=== PATIENT | female | born 1985 | race Two or more races ===

== ENCOUNTER 2016-11-24 07:57 | Emergency (ER) | payer OTHER ==
[2016-11-24 08:05] VITALS: TEMP 98.7; BMI 39.8
--- NOTE | 2016-11-24 08:42 | PDOC ---
History of Present Illness - General History Source: Patient Exam Limitations: No Limitations - History of Present Illness Initial Comments: CHIEF COMPLAINT: 31 y/o afebrile female with PMH PCOS c/o pelvic pain since yesterday. HISTORY OF PRESENT ILLNESS: The patient states her menstrual cycle started yesterday. She has normal period cramping but is also having sharp pelvic pains as well as the cramping that is unusual for her. She states it feels like pain she used to get with her PCOS but she hasn't had this type of pain in many years. She states she was taking Advil all day yesterday with no relief. She denies f/c, n/v/d, CP, SOB, back pain, hematuria, dysuria. Vital signs on arrival are within normal limits. REVIEW OF SYSTEMS: GENERAL/CONSTITUTIONAL: No fever/chills. No weakness. No weight change. HEAD, EYES, EARS, NOSE AND THROAT: No change in vision. No ear pain or discharge. No sore throat. CARDIOVASCULAR: No chest pain or shortness of breath. RESPIRATORY: No cough, wheezing, or hemoptysis. GASTROINTESTINAL: +pelvic pain and vaginal bleeding. No nausea, vomiting, diarrhea. GENITOURINARY: No dysuria, frequency, or change in urination. MUSCULOSKELETAL: No joint or muscle swelling or pain. No neck or back pain. SKIN: No rash or easy bruising. NEUROLOGIC: No headache, vertigo, loss of consciousness, or loss of sensation. PHYSICAL EXAM: GENERAL: The patient is awake, alert, and fully oriented, in no acute distress. She is morbidly obese and crying in the ER. HEAD: Normal with no signs of trauma. ENT: Pupils equal, round and reactive to light, extraocular movements intact, sclera anicteric, conjunctiva clear. Neck supple. LUNGS: Clear to auscultation bilaterally. Normal excursion. No respiratory distress or use of accessory muscles. CV: RRR, S1/S2, no MRG. Cap refill < 2 sec. ABDOMEN: Soft, non-distended, no hepatomegaly or splenomegaly, no masses. No rebound, guarding or rigidity. Pain elicited with palpation of pelvis and suprapubic region. VAGINAL: Moderate blood in vaginal vault and seen coming from the os. No lesions or lacerations noted. Manual exam reveals CMT and b/l adnexal tenderness. EXTREMITIES: Normal range of motion, no edema. NEUROLOGICAL: Normal speech, normal gait. CN II-XII grossly intact. PSYCH: Normal mood, normal affect. SKIN: Warm, dry, normal turgor, no rashes or lesions noted. <Mary Carmen Gunn - Last Filed: 11/24/16 11:16> <Beverley Garrett - Last Filed: 11/26/16 14:15> - General Chief Complaint: Pain Stated Complaint: PELVIC PAIN Time Seen by Provider: 11/24/16 08:24 Past History - Past Medical History Disorders: Yes (UTI) - Immunization History Immunization Up to Date: No - Psycho/Social/Smoking Cessation Hx Anxiety: No Suicidal Ideation: No Smoking History: Never smoked Have you smoked in the past 12 months: No Information on smoking cessation initiated: No Hx Alcohol Use: No Drug/Substance Use Hx: No Substance Use Type: Alcohol <Mary Carmen Gunn - Last Filed: 11/24/16 11:16> <Beverley Garrett - Last Filed: 11/26/16 14:15> - Past Medical History Allergies/Adverse Reactions: Allergies Allergy/AdvReac Type Severity Reaction Status Date / Time clindamycin Allergy Verified 11/24/16 08:03 Home Medications: Ambulatory Orders NK [No Known Home Medication] 11/24/16 *Physical Exam - Vital Signs Last Vital Signs Temp Pulse Resp BP Pulse Ox 98.7 F 65 18 131/94 100 11/24/16 07:59 11/24/16 07:59 11/24/16 07:59 11/24/16 07:59 11/24/16 07:59 <Mary Carmen Gunn - Last Filed: 11/24/16 11:16> - Vital Signs Last Vital Signs Temp Pulse Resp BP Pulse Ox 98.7 F 61 18 119/73 100 11/24/16 07:59 11/24/16 11:44 11/24/16 11:44 11/24/16 11:44 11/24/16 11:44 <Beverley Garrett - Last Filed: 11/26/16 14:15> ED Treatment Course - ADDITIONAL ORDERS Additional order review: 11/24/16 08:45 Urine Culture - Final Urine - Urine Clean Catch NO GROWTH OBTAINED - RADIOLOGY Radiology Studies Ordered: Category Date Time Status PELVIC / BLADDER US [US] Routine Ultrasound 11/24/16 Completed - Medications Given in the ED: ED Medications Discontinued Medications Generic Name Dose Route Start Last Admin Trade Name Kalmesh PRN Reason Stop Dose Admin Ketorolac Tromethamine 60 mg 11/24/16 10:40 11/24/16 10:50 Toradol Injection - IM 11/24/16 10:41 60 mg ONCE ONE Administration <Beverley Garrett - Last Filed: 11/26/16 14:15> Medical Decision Making - Medical Decision Making A/P: 31 y/o female with pelvic pain and cramping. She states it feels like PCOS pain but she hasn't had this type of pain in many years. Plan is as follows: 1. UA/culture/hcg 2. Transvaginal ultrasound Transvaginal Ultrasound IMPRESSION: Normal pelvic sonogram with no evidence of torsion or acute pathology. Will order IM Toradol. The patient states she feels better after IV Toradol and her pain is much more manageable. Gave her all of the results. I suspect this may be a flare of her PCOS and strongly encouraged the patient to f/u with her PRECISION LENS CENTERER AND EDGER as soon as possible. Suggested she take 800mg of Ibuprofen three times per day with food over the next few days and drink plenty of fluids. Instructed her to return to the ER immediately with any worsening or concerning symptoms. The patient verbalizes understanding of all instructions, has no further questions and is awaiting discharge. <Mary Carmen Gunn - Last Filed: 11/24/16 11:16> - Medical Decision Making 11/26/16 14:14 Pt seen and examined. Agree with above history and physical, assesment and plan. <Beverley Garrett - Last Filed: 11/26/16 14:15> *DC/Admit/Observation/Transfer <Mary Carmen Gunn - Last Filed: 11/24/16 11:16> <Beverley Garrett - Last Filed: 11/26/16 14:15> Diagnosis at time of Disposition: Pelvic pain, Dysmenorrhea - Discharge Dispostion Disposition: HOME Condition at time of disposition: Improved - Referrals Referrals: Natalie Schmitt MD [Primary Care Provider] - Tip Holguin MD [Staff Physician] - - Patient Instructions Printed Discharge Instructions: DI for Dysmenorrhea, DI for Pelvic Pain Additional Instructions: Discharge Instructions: -The ultrasound of your uterus and ovaries was normal. -Please take 800mg of Ibuprofen every 8 hours with food for pain -Drink at least 64oz of water daily -Follow up at [id number] or with Dr. Holguin as soon as possible -Return to the ER with any worsening or concerning symptoms.
[2016-11-24 08:57] LABS: URINE APPEARANCE CLEAR; URINE BILIRUBIN NEGATIVE (NEGATIVE); URINE COLOR STRAW; URINE GLUCOSE (UA) NEGATIVE (NEGATIVE); URINE KETONE NEGATIVE (NEGATIVE); URINE LEUK ESTERASE NEGATIVE (NEGATIVE); URINE NITRITE NEGATIVE (NEGATIVE); URINE PROTEIN NEGATIVE (NEGATIVE); URINE UROBILINOGEN NEGATIVE E.U./dl (0.2-1.0)
[2016-11-24 08:58] LABS: URINE BLOOD 2+ (NEGATIVE)
[2016-11-24 09:00] LABS: URINE RBC 2 /hpf (0-3); URINE WBC <1 /hpf (3-5)
[2016-11-24] MEDS ORDERED: KETOROLAC TROMETHAMINE 60 MG/2 ML VIAL IM ONE (10:40)
[2016-11-24] MEDS ORDERED: KETOROLAC TROMETHAMINE 60 MG/2 ML VIAL ONE (10:47)
[2016-11-24 11:46] VITALS: BP 119/73; PULSE 61
== END 2016-11-24 11:46 | disposition home or self-care (01) ==
LOC: JER 07:57
PROC: 3E0233Z Introduction of Anti-inflammatory into Muscle, Percutaneous Approach (ICD-10-PCS; principal; 2016-11-24)
DX: N94.6 Dysmenorrhea, unspecified (principal)
CPT/HCPCS: 76830-TC; 76856-TC; 81003; 81015; 84703; 87086; 99283-25

== ENCOUNTER 2018-11-27 07:33 | Emergency (ER) | payer OTHER ==
[2018-11-27 07:42] VITALS: TEMP 98.5; BMI 45.4
--- NOTE | 2018-11-27 08:05 | PDOC ---
History of Present Illness - General Chief Complaint: Vaginal Bleeding Stated Complaint: 7 WEEKS PREG AND SPOTTING - History of Present Illness Initial Comments: The pt is a 33F at 7wks w/ a history of PCOS who presents for evaluation of vaginal spotting this morning. She reports pelvic cramping throughout the which has not changed. She denies clots or previous spotting during her . She denies dysuria, hematuria, diarrhea, blood in her stool, N/V , lightheadedness, history of easy bleeding/bruising. She was seen by her OBGYN 5 days ago, was told her beta may not be rising appropriately and was told to present if there was any spotting. Endorses taking pre- vitamins. Her cramping pains are intermittent, suprapubic, non-radiating, not aggravated/ alleviated by anything she can identify 11/27/18 08:04 Past History - Past Medical History Allergies/Adverse Reactions: Allergies Allergy/AdvReac Type Severity Reaction Status Date / Time clindamycin Allergy Verified 11/27/18 07:42 Home Medications: Ambulatory Orders NK [No Known Home Medication] 11/24/16 COPD: No Disorders: Yes (UTI) - Immunization History Immunization Up to Date: No - Suicide/Smoking/Psychosocial Hx Smoking History: Never smoked Have you smoked in the past 12 months: No Hx Alcohol Use: No Drug/Substance Use Hx: No Substance Use Type: Alcohol Review of Systems - Review of Systems Able to Perform ROS?: Yes Comments:: GENERAL/CONSTITUTIONAL: No fever or chills. No weakness HEAD, EYES, EARS, NOSE AND THROAT: No change in vision. No ear pain or discharge. No sore throat CARDIOVASCULAR: No chest pain or shortness of breath RESPIRATORY: Denies cough, hemoptysis GASTROINTESTINAL: No nausea, vomiting, diarrhea or constipation GENITOURINARY: No dysuria, frequency, or change in urination MUSCULOSKELETAL: No joint or muscle swelling or pain. No neck or back pain SKIN: No rash NEUROLOGIC: No headache, vertigo, loss of consciousness, or change in strength/ sensation ENDOCRINE: No increased thirst. No abnormal weight change HEMATOLOGIC/LYMPHATIC: No anemia, easy bleeding, or history of blood clots ALLERGIC/IMMUNOLOGIC: No hives or skin allergy 11/27/18 08:04 Is the patient limited Greek proficient: No *Physical Exam - Vital Signs Last Vital Signs Temp Pulse Resp BP Pulse Ox 98.5 F 78 18 129/78 98 11/27/18 07:39 11/27/18 07:39 11/27/18 07:39 11/27/18 07:39 11/27/18 07:39 - Physical Exam Comments: GENERAL: Awake, alert, and oriented to person/place/time, in no acute distress HEAD: No signs of trauma, normocephalic, atraumatic EYES: PERRLA, EOMI, sclera anicteric, conjunctiva clear ENT: Hearing grossly normal, nares patent, oropharynx clear without exudates. Moist mucosa LUNGS: No distress, speaks in full sentences, clear to auscultation bilaterally HEART: Regular rate and rhythm, normal S1 and S2, no murmurs appreciated, peripheral pulses normal and equal bilaterally ABDOMEN: Soft, protuberant, nontender, normoactive bowel sounds. No guarding, no rebound EXTREMITIES: Normal inspection, Normal range of motion, no edema. No clubbing or cyanosis NEUROLOGICAL: Cranial nerves II through XII grossly intact. Normal speech, normal gait, no focal sensorimotor deficits SKIN: Warm, Dry External genitalia unremarkable Speculum exam with normal appearing whitish vaginal discharge Vaginal wall mucosa is unremarkable. Cervix visualized and is closed w/o any protruding material Bimanual exam without cervical motion tenderness, adnexal tenderness or any masses appreciated 11/27/18 08:04 ED Treatment Course - LABORATORY CBC & Chemistry Diagram: 11/27/18 09:40 11/27/18 09:40 Medical Decision Making - Medical Decision Making The pt is a 33F at 7 weeks who presents for evaluation of vaginal spotting this morning. TVUS to evaluate for FHT, or evidence of bleed/free fluid, or cyst Labs sent US w/o free fluid, notable for ovarian cyst, FHT wnl Lytes wnl No anemia No leukocytosis Rh + UA w/o evidence of UTI Beta 19731 (data provided to pt and increased from 8000s this past Thursday) Plan for D/C w/ OBGYN f/u Discharge instructions and return precautions given Pt in agreement and verbalized understanding Dispo: home 11/27/18 14:38 *DC/Admit/Observation/Transfer Diagnosis at time of Disposition: Bleeding in early , Threatened - Discharge Dispostion Disposition: HOME Condition at time of disposition: Stable Decision to Admit order: No - Referrals Referrals: Kayli Spear MD [Primary Care Provider] - - Patient Instructions Printed Discharge Instructions: DI for Threatened Additional Instructions: Please continue to take vitamins. Please drink plenty of fluids. Your beta hcg today was >10,000. Your blood type was O+. Please make a follow up appointment with your SHELL FISHERMAN for this week. Please return to the ED if you are bleeding more than 2 pads an hour for more than 2 hours, feeling lightheaded or any further concerns. - Post Discharge Activity
--- NOTE | 2018-11-27 08:41 | PDOC ---
Attending Attestation - Resident Resident Name: Herber Dennis - ED Attending Attestation I have performed the following: I have examined & evaluated the patient, The case was reviewed & discussed with the resident, I agree w/resident's findings & plan, Exceptions are as noted - Medical Decision Making 11/27/18 08:41 I, Dr. Jeane Dewey, DO, attest that this document has been prepared under my direction and personally reviewed by me in its entirety. I further attest, that it accurately reflects all work, treatment, procedures and medical decision -making performed by me.
[2018-11-27 09:47] LABS: BASO % 0.8 % (0-2.0); EOS % 1.1 % (0-4.5); HEMATOCRIT 38.7 % (32.4-45.2); LYMPH % 20.2 % (8-40); MCH 28.7 pg (25.7-33.7); MCHC 33.6 g/dl (32.0-36.0); MEAN CELL VOLUME 85.5 fl (80-96); MEAN PLT VOLUME 7.6 fl (7.5-11.1); MONO % 8.8 % (3.8-10.2); NEUT % 69.1 % (42.8-82.8); RBC 4.53 M/mm3 (3.60-5.2); RDW 13.3 % (11.6-15.6); WHITE BLOOD COUNT 7.9 K/mm3 (4.0-10.0)
--- NOTE | 2018-11-27 09:47 | PDOC ---
Documentation entered by Salvatore Wallis SCRIBE, acting as scribe for Jeane Dewey DO. Jeane Dewey DO: This documentation has been prepared by the Bimal sultana Elijah, SCRIBE, under my direction and personally reviewed by me in its entirety. I confirm that the documentation accurately reflects all work, treatment, procedures, and medical decision making performed by me. Attending Attestation - Resident Resident Name: SonnyJonHerber - ED Attending Attestation I have performed the following: I have examined & evaluated the patient, The case was reviewed & discussed with the resident, I agree w/resident's findings & plan - HPI HPI: 11/27/18 09:48 The patient is a at 7wks with a significant past medical history of PCOS who presents to the ED with evaluation for vaginal spotting that began this morning. Patient reports pelvic cramping throughout her . Denies discharge and diarrhea Allergies: Clindamycin PCP: Dr. Spear - Physicial Exam PE: 11/27/18 09:48 GENERAL: +Obese. Awake, alert, and fully oriented, in no acute distress HEAD: No signs of trauma EYES: PERRLA, EOMI, sclera anicteric, conjunctiva clear ENT: Auricles normal inspection, hearing grossly normal, nares patent, oropharynx clear without exudates. Moist mucosa NECK: Normal ROM, supple, no lymphadenopathy, JVD, or masses LUNGS: Breath sounds equal, clear to auscultation bilaterally. No wheezes, and no crackles HEART: Regular rate and rhythm, normal S1 and S2, no murmurs, rubs or gallops ABDOMEN: Soft, nontender, normoactive bowel sounds. No guarding, no rebound. No masses EXTREMITIES: Normal range of motion, no edema. No clubbing or cyanosis. No cords, erythema, or tenderness VAGINAL: No vaginal bleeding during exam. NEUROLOGICAL: Cranial nerves II through XII grossly intact. Normal speech, normal gait SKIN: Warm, Dry, normal turgor, no rashes or lesions noted. - Medical Decision Making 11/27/18 09:46 I, Dr. Jeane Dewey DO, attest that this document has been prepared under my direction and personally reviewed by me in its entirety. I further attest, that it accurately reflects all work, treatment, procedures and medical decision -making performed by me. 11/27/18 09:46 a/p: 33yo female with pcos at about 7 weeks gestation -pt with cramping since the start of her preg -pt with spotting today, no clots -pt denies v/d/discharge -no dysuria -will send labs, beta earlier this week was 8560. will repeat -will send for tvus -pt is nontoxic in appearance -will send type and screen 11/27/18 09:47 tvus: iup at 6 weeks with fhr 133 L ovarian cyst 11/27/18 10:45 beta 10,000 type and screen pending need ua 11/27/18 10:57 ua neg pending type and screen 11/27/18 11:31 o+ stable for dc to home *DC/Admit/Observation/Transfer Diagnosis at time of Disposition: Bleeding in early , Threatened - Discharge Dispostion Disposition: HOME Condition at time of disposition: Stable Decision to Admit order: No - Referrals Referrals: Kayli Spear MD [Primary Care Provider] - - Patient Instructions Printed Discharge Instructions: DI for Threatened Additional Instructions: Please continue to take vitamins. Please drink plenty of fluids. Your beta hcg today was >10,000. Your blood type was O+. Please make a follow up appointment with your MEDICAL RECORDS SUPERVISOR for this week. Please return to the ED if you are bleeding more than 2 pads an hour for more than 2 hours, feeling lightheaded or any further concerns. - Post Discharge Activity
[2018-11-27 10:01] LABS: PLATELET COUNT 367 K/MM3 (134-434)
[2018-11-27 10:25] LABS: ALBUMIN 3.9 g/dl (3.4-5.0); BILIRUBIN,TOTAL 0.6 mg/dL (0.2-1); BLOOD UREA NITROGEN 9.6 mg/dL (7-18); CALCIUM 8.8 mg/dL (8.5-10.1); CREATININE 0.7 mg/dL (0.55-1.3); POTASSIUM 4.3 mmol/L (3.5-5.1); TOT PROT 7.3 g/dl (6.4-8.2)
[2018-11-27 10:55] LABS: PH,URINE 7.5 (5.0-8.0); URINE APPEARANCE CLEAR; URINE BILIRUBIN NEGATIVE (NEGATIVE); URINE COLOR YELLOW; URINE GLUCOSE (UA) NEGATIVE (NEGATIVE); URINE KETONE NEGATIVE (NEGATIVE); URINE LEUK ESTERASE NEGATIVE (NEGATIVE); URINE NITRITE NEGATIVE (NEGATIVE); URINE PROTEIN NEGATIVE (NEGATIVE); URINE UROBILINOGEN 0.2 mg/dL (0.2-1.0)
[2018-11-27 11:46] VITALS: BP 126/72; PULSE 76
== END 2018-11-27 11:46 | disposition home or self-care (01) ==
LOC: JER 07:33
DX: O26.891 Other specified pregnancy related conditions, first trimester (principal); O20.0 Threatened abortion; O20.8 Other hemorrhage in early pregnancy; Z3A.01 Less than 8 weeks gestation of pregnancy
CPT/HCPCS: 36415; 76817-TC; 80053; 81003; 84702; 85025; 86850; 86900; 86901; 87086; 99282-25

== ENCOUNTER 2019-08-02 09:48 | Emergency (ER) | payer OTHER ==
[2019-08-02 09:54] VITALS: BP 152/98; PULSE 81; TEMP 98.2; BMI 46.3
--- NOTE | 2019-08-02 10:04 | PDOC ---
History of Present Illness - General Chief Complaint: Respiratory Stated Complaint: COUGHING/HEADACHE Time Seen by Provider: 08/02/19 10:04 History Source: Patient Exam Limitations: No Limitations Past History - Travel Traveled outside of the country in the last 30 days: No Close contact w/someone who was outside of country & ill: No - Past Medical History Allergies/Adverse Reactions: Allergies Allergy/AdvReac Type Severity Reaction Status Date / Time clindamycin Allergy Verified 08/02/19 09:54 Home Medications: Ambulatory Orders Albuterol Sulfate Inhaler - [Ventolin HFA Inhaler -] 1 - 2 inh PO Q4H #1 inhaler 08/02/19 Azithromycin [Zithromax 250mg Tablets -] 250 mg PO UTDICT #6 tab 08/02/19 Guaifenesin Dm [Robitussin Dm -] 10 ml PO Q6H #120 ml 08/02/19 COPD: No Disorders: Yes (UTI) - Immunization History Immunization Up to Date: No - Psycho Social/Smoking Cessation Hx Smoking History: Never smoked Have you smoked in the past 12 months: No Hx Alcohol Use: Yes Drug/Substance Use Hx: No Substance Use Type: Alcohol Review of Systems - Review of Systems Able to Perform ROS?: Yes Comments:: 08/02/19 12:52 CONSTITUTIONAL: Absent: fever, chills, diaphoresis, generalized weakness, malaise, loss of appetite HEENT: Absent: rhinorrhea, nasal congestion, throat pain, throat swelling, difficulty swallowing, mouth swelling, ear pain, eye pain, visual changes CARDIOVASCULAR: Absent: chest pain, loss of consciousness, palpitations, irregular heart rate, peripheral edema RESPIRATORY: Present: Cough Absent: shortness of breath, dyspnea with exertion, orthopnea, wheezing, stridor, hemoptysis MUSCULOSKELETAL: Absent: myalgia, arthralgia, joint swelling SKIN: Absent: rash, itching, pallor NEUROLOGIC: Absent: headache, focal weakness or paresthesias, dizziness, unsteady gait, seizure, mental status changes, bladder or bowel incontinence PSYCHIATRIC: Absent: anxiety, depression, suicidal or homicidal ideation, hallucinations. Is the patient limited Spanish proficient: No *Physical Exam - Vital Signs Last Vital Signs Temp Pulse Resp BP Pulse Ox 98.2 F 81 16 152/98 98 08/02/19 09:52 08/02/19 09:52 08/02/19 09:52 08/02/19 09:52 08/02/19 09:52 - Physical Exam 08/02/19 12:53 GENERAL: Well developed, well nourished. Awake and alert. No acute distress. HEENT: Normocephalic, atraumatic. PERRLA, EOMI. No conjunctival pallor. Sclera are non- icteric. Moist mucous membranes. Oropharynx is clear. NECK: Supple. Full ROM. No lymphadenopathy. CARDIOVASCULAR: Regular rate and rhythm. No murmurs, rubs, or gallops. Distal pulses are 2+ and symmetric. PULMONARY: No evidence of respiratory distress. Lungs clear to auscultation bilaterally. No wheezing, rales or rhonchi. SKIN: Warm and dry. Normal capillary refill. No rashes. No jaundice. NEUROLOGICAL: Alert, awake, appropriate. Cranial nerves 2-12 intact. No deficits to light touch and temperature in face, upper extremities and lower extremities. No motor deficits in the in face, upper extremities and lower extremities. Normoreflexic in the upper and lower extremities. Normal speech. Toes are down- going bilaterally. Gait is normal without ataxia. PSYCHIATRIC: Cooperative. Good eye contact. Appropriate mood and affect. Medical Decision Making - Medical Decision Making 08/02/19 12:54 Patient is 34-year-old female otherwise healthy, who presents the ER today for cough for 3 weeks. She states that her cough started after her son got her sick. She states that last week she started to feel little bit better however the cough has been persistent. It is nonproductive. She states she also has a sore throat. Denies fevers, chills, shortness of breath, difficulty breathing, nausea and vomiting. A/P: Bronchitis On exam lungs are clear to auscultation bilateral without wheezes rales or rhonchi. Chest x-ray is negative for pneumonia. Given 3 weeks of cough will treat with a Z-Jono at this time. Discharge home to follow-up with primary care. I discussed the physical exam findings, ancillary test results and final diagnoses with the patient. I answered all of the patient's questions. The patient was satisfied with the care received and felt comfortable with the discharge plan and treatment plan. The Patient agrees to follow up with the primary care physician/specialist within 24-72 hours. Return precautions were given. Discharge - Discharge Information Problems reviewed: Yes Clinical Impression/Diagnosis: Cough Condition: Stable Disposition: HOME - Admission No - Additional Discharge Information Prescriptions: Albuterol Sulfate Inhaler - [Ventolin HFA Inhaler -] 1 - 2 inh PO Q4H #1 inhaler Azithromycin [Zithromax 250mg Tablets -] 250 mg PO UTDICT #6 tab Guaifenesin Dm [Robitussin Dm -] 10 ml PO Q6H #120 ml - Follow up/Referral Referrals: Solis Dela Cruz MD [Staff Physician] - - Patient Discharge Instructions Patient Printed Discharge Instructions: DI for Acute Bronchitis Additional Instructions: You have bronchitis Please use the inhaler every 4 hours for the next week to help with your cough. Take the Z-Jono as directed You may take the Robitussin to help with your cough. Do not drive or drink alcohol after taking this medication as it may make you sleepy. Please follow up with your primary care doctor in 1 week if your symptoms are not improving. Return to the emergency department if you have fevers, chills, worsening cough, chest pain, worsening shortness of breath or if you have any changes in your symptoms. - Post Discharge Activity Work/Back to School Note: Back to Work
== END 2019-08-02 11:37 | disposition home or self-care (01) ==
LOC: JERFT 09:48
DX: J20.9 Acute bronchitis, unspecified (principal); Z88.1 Allergy status to other antibiotic agents
CPT/HCPCS: 71046-TC-FY; 99283-25